=== PATIENT | male | born 1965 | race Caucasian/White ===

== ENCOUNTER 2023-03-29 07:56 | Day surgery (SDC) | payer BC ==
[~2023-03-29 07:56] MED LIST: Lactated Ringers 1,000 ML IV SCH; Lidocaine 1% 5 ML VIAL ONE; Propofol 200 MG/20 ML SDV ONE; fentaNYL 100 MCG/2 ML SDV ONE
[2023-03-29] MEDS ORDERED: Propofol 200 MG/20 ML SDV ONE (09:21)
== END 2023-03-29 10:30 | disposition home or self-care (01) ==
LOC: MW.SDS 07:56
PROVIDERS: ATTEND Surgery
DX: Z12.11 Encounter for screening for malignant neoplasm of colon (principal); D12.6 Benign neoplasm of colon, unspecified; K57.30 Diverticulosis of large intestine without perforation or abscess without bleeding; K63.5 Polyp of colon; K64.8 Other hemorrhoids; K21.9 Gastro-esophageal reflux disease without esophagitis
CPT/HCPCS: 45380; 45385; J2704; J3010; J7120; 00811; J3490

== ENCOUNTER 2024-03-11 07:04 | Day surgery (SDC) | payer BC ==
[~2024-03-11 07:04] MED LIST changes: +Acetaminophen 1,000 MG in Premix Bag 1 BAG IV SCH; -Lactated Ringers 1,000 ML IV SCH; -Lidocaine 1% 5 ML VIAL ONE; -Propofol 200 MG/20 ML SDV ONE; -fentaNYL 100 MCG/2 ML SDV ONE
[2024-03-11] MEDS ORDERED: Bupivacaine 0.5% 30 ML SDV ONE (07:09)
[2024-03-11] MEDS: Pregabalin 75 MG Cap PO SCH (07:15)
[2024-03-11] MEDS ORDERED: Rocuronium Bromide 50 MG/5 ML Syringe ONE (07:18)
[2024-03-11] MEDS ORDERED: Lidocaine 2% 5 ML SDV ONE (07:18)
[2024-03-11] MEDS ORDERED: fentaNYL 100 MCG/2 ML SDV ONE (07:19)
[2024-03-11] MEDS ORDERED: Midazolam 1 MG/ML 2 ML SDV ONE (07:19)
[2024-03-11] MEDS ORDERED: Propofol 200 MG/20 ML SDV ONE (07:19)
[2024-03-11] MEDS: Lactated Ringers 1,000 ML IV SCH (07:35)
[2024-03-11] MEDS ORDERED: HYDROmorphone 1 MG/ML Syringe IVPUSH PRN (07:42)
[2024-03-11] MEDS ORDERED: droPERidol 5 MG/2 ML SDV IVPUSH PRN (07:42)
[2024-03-11] MEDS ORDERED: Naloxone 0.4 MG/ML SDV IVPUSH PRN (07:42)
[2024-03-11] MEDS ORDERED: fentaNYL 50 MCG/ML SDV IVPUSH PRN (07:42)
[2024-03-11] MEDS ORDERED: Metoclopramide 10 MG/2 ML SDV IVPUSH PRN (07:42)
[2024-03-11] MEDS ORDERED: Ondansetron 4 MG/2 ML SDV IVPUSH PRN (07:42)
[2024-03-11] MEDS ORDERED: Morphine 2 MG/ML SYRINGE IVPUSH PRN (07:42)
[2024-03-11] MEDS ORDERED: Albuterol 0.083% 2.5 MG/3 ML Neb Soln NEB PRN (07:42)
[2024-03-11] MEDS ORDERED: Bupivacaine 0.25% 30 ML SDV ONE (07:46)
[2024-03-11] MEDS ORDERED: Ropivacaine 0.5% 5 MG/ML 30 ML SDV ONE (07:46)
[2024-03-11] MEDS ORDERED: Morphine 10 MG/ML SDV ONE (07:48)
[2024-03-11] MEDS ORDERED: ceFAZolin 1 GM Vial ONE (08:50)
[2024-03-11] MEDS ORDERED: Ondansetron 4 MG/2 ML SDV ONE (09:06)
[2024-03-11] MEDS ORDERED: Sugammadex Sodium 200 MG/2 ML VIAL IV ONE (09:06)
[2024-03-11] MEDS ORDERED: Dexamethasone 4 MG/ML 5 ML MDV ONE (09:06)
[2024-03-11] MEDS ORDERED: ePHEDrine 50 MG/ML SDV ONE (09:12)
[2024-03-11] MEDS ORDERED: ceFAZolin 2 GM in Sodium Chloride 0.9% 50 ML IV ONE (14:53)
== END 2024-03-11 11:30 | disposition home or self-care (01) ==
LOC: MW.SDS 07:04
PROVIDERS: ATTEND Surgery
DX: K42.0 Umbilical hernia with obstruction, without gangrene (principal); K21.9 Gastro-esophageal reflux disease without esophagitis; F17.290 Nicotine dependence, other tobacco product, uncomplicated; Z79.899 Other long term (current) drug therapy
CPT/HCPCS: 49592; A9270; J0665; J0690; J1100; J2250; J2270; J2405; J2704; J2795; J3010; J3490; J7120

== ENCOUNTER 2024-05-04 14:45 | Emergency (ER) | payer BC ==
[2024-05-04 15:18] LABS: BASOPHILS ABSOLUTE AUTO 0.05 K/uL (0.00-0.20); BASOPHILS PERCENT AUTO 0.8 % (0.0-1.0); EOSINOPHILS ABSOLUTE AUTO 0.23 K/uL (0.00-0.45); EOSINOPHILS PERCENT AUTO 3.6 % (0.0-6.0); HEMATOCRIT 41.5 % (42.0-52.0); HEMOGLOBIN 15.1 g/dL (14.0-18.0); IMMATURE GRAN ABSOLUTE AUTO 0.01 K/uL (0.00-0.05); IMMATURE GRAN PERCENT AUTO 0.2 % (0.0-0.4); LYMPHOCYTES ABSOLUTE AUTO 1.89 K/uL (1.00-4.80); LYMPHOCYTES PERCENT AUTO 29.3 % (24.0-44.0); MEAN CORPUSCULAR HEMOGLOBIN 32.6 pg (28.0-32.0); MEAN CORPUSCULAR HGB CONC 36.4 g/dL (32.0-36.0); MEAN CORPUSCULAR VOLUME 89.6 fL (83.0-99.0); MEAN PLATELET VOLUME 9.2 fL (9.4-12.4); MONOCYTES ABSOLUTE AUTO 0.42 K/uL (0.00-0.80); MONOCYTES PERCENT AUTO 6.5 % (0.0-8.0); NEUTROPHILS ABSOLUTE AUTO 3.85 K/uL (1.80-7.70); NEUTROPHILS PERCENT AUTO 59.6 % (41.0-71.0); PLATELET COUNT,PLT 231 K/uL (150-400); RED BLOOD CELL COUNT 4.63 M/uL (4.52-5.90); WHITE BLOOD CELL COUNT,WBC 6.45 K/uL (3.9-11.3)
[2024-05-04 15:56] LABS: A/G RATIO 1.3 (0.9-1.6); ALANINE AMINOTRANSFERASE,ALT 32 IU/L (14-63); ALBUMIN 3.8 g/dL (3.4-5.0); ALKALINE PHOSPHATASE 55 U/L (46-116); ASPARTATE AMNIOTRANSFERASE,AST 34 IU/L (15-37); BILIRUBIN TOTAL 0.6 mg/dL (0.2-1.0); BLOOD UREA NITROGEN,BUN 12 mg/dL (7.0-18.0); CALCIUM 8.7 mg/dL (8.5-10.1); CARBON DIOXIDE,CO2 28.2 mmol/L (21.0-32.0); CHLORIDE,CL 106 mmol/L (98-107); CREATININE 0.8 mg/dL (0.8-1.3); GLUCOSE RANDOM 118 mg/dL (74-106); MAGNESIUM 1.9 mg/dL (1.8-2.4); PRO B-TYPE NATRIUR PEPT,BNPPRO 118 pg/mL (0-125); PROTEIN TOTAL,TP 6.8 g/dL (6.4-8.2); SODIUM,NA 142 mmol/L (136-148)
[2024-05-04 15:58] LABS: ESTIMATED GFR 103 mL/min (>60)
[2024-05-04] MEDS ORDERED: Sodium Chloride 0.9% 10 ML Syringe FLUSH PRN (17:04)
[2024-05-04] MEDS: Iopamidol 755 MG/ML 500 ML Multipack Bottle IVPUSH STA (17:45)
[2024-05-04] MEDS: Dexamethasone 4 MG/ML SDV IVPUSH ONE (18:30)
[2024-05-04] MEDS: Meclizine 25 MG Tab PO ONE (18:31)
== END 2024-05-04 19:14 | disposition home or self-care (01) ==
LOC: MW.ED 14:45
DX: I65.23 Occlusion and stenosis of bilateral carotid arteries (principal); H81.392 Other peripheral vertigo, left ear; H55.09 Other forms of nystagmus; H66.92 Otitis media, unspecified, left ear
CPT/HCPCS: 36415; 70450; 70498; 80053; 83735; 83880; 84484; 85025; 96374; 99284; A9270; J1100; Q9967; 93010; 99285